=== PATIENT | male | born 1965 | race Caucasian/White ===

== ENCOUNTER 2019-11-06 01:34 | Emergency (ER) | payer BC ==
[2019-11-06 03:01] LABS: ABSOLUTE BASOPHILS # (AUTO) 0.1 10^3/uL (0.0-0.2); ABSOLUTE EOSINOPHILS # (AUTO) 0.1 10^3/uL (0.0-0.6); ABSOLUTE LYMPHOCYTES (AUTO) 1.3 10^3/uL (0.5-4.7); ABSOLUTE MONOCYTES (AUTO) 0.6 10^3/uL (0.1-1.4); ABSOLUTE NEUT (AUTO) 5.7 10^3/uL (1.7-8.2); BASOPHILS % (AUTO) 0.7 % (0-2); HEMOGLOBIN 14.8 g/dL (13.5-17.0); LYMPHOCYTES % (AUTO) 16.8 % (13-45); MEAN CORPUSCULAR HEMOGLOBIN 34.1 pg (27.0-33.4); MEAN CORPUSCULAR HGB CONC 34.4 g/dL (32.0-36.0); MEAN CORPUSCULAR VOLUME 99 fl (80-97); MONOCYTES % (AUTO) 7.2 % (3-13); PLATELET COUNT 171 10^3/uL (150-450); RED BLOOD COUNT 4.33 10^6/uL (4.35-5.55); RED CELL DISTRIBUTION WIDTH 13.2 % (11.5-14.0); SEGMENTED NEUTROPHILS % (AUTO) 74.3 % (42-78); TOTAL CELLS COUNTED % (AUTO) 100 %; WHITE BLOOD COUNT 7.7 10^3/uL (4.0-10.5)
[2019-11-06 03:02] LABS: APPEARANCE,URINE CLEAR; BILIRUBIN,URINE NEGATIVE (NEGATIVE); COLOR,URINE YELLOW; GLUCOSE, URINE NEGATIVE (NEGATIVE); KETONES,URINE NEGATIVE (NEGATIVE); LEUKOCYTE ESTERASE,URINE NEGATIVE (NEGATIVE); NITRITE,URINE NEGATIVE (NEGATIVE); PROTEIN,URINE NEGATIVE (NEGATIVE); URINE SPECIFIC GRAVITY 1.014; UROBILINOGEN,URINE NEGATIVE mg/dL (<2.0)
--- NOTE | 2019-11-06 03:24 | ER Document Report ---
ED Dizziness/Weakness - General Chief Complaint: Dizziness Stated Complaint: LIGHTHEADED Time Seen by Provider: 11/06/19 02:59 Notes: 54-year-old male with medical history of tendinitis presenting with an episode of chest tightness that woke him out of sleep. States that the symptoms resolved after he got up but shortly after he felt sweaty, dizzy and developed chills and an increase in his chest pressure. He denies any chest pain or shor tness of breath. He has no pain radiating down his left arm or up his neck. States that he felt very dizzy on the second episode which prompted him to call EMS. He denies any symptoms currently. States his blood pressure is typically 130/80- 140/90. No past medical history of cardiac events or strokes. He has been exposed to someone who tested positive for COVID. - Related Data Allergies/Adverse Reactions: No Known Allergies Allergy (Unverified 11/06/19 02:11) Past Medical History - Social History Smoking Status: Never Smoker Chew tobacco use (# tins/day): No Frequency of alcohol use: None Drug Abuse: None Family History: Reviewed & Not Pertinent Patient has homicidal ideation: No Review of Systems - Review of Systems Constitutional: See HPI EENT: No symptoms reported Cardiovascular: See HPI Respiratory: No symptoms reported Gastrointestinal: No symptoms reported Genitourinary: No symptoms reported Male Genitourinary: No symptoms reported Musculoskeletal: No symptoms reported Skin: No symptoms reported Hematologic/Lymphatic: No symptoms reported Neurological/Psychological: No symptoms reported Physical Exam - Vital signs Vitals: Resp Pulse Ox 15 97 11/06/19 01:35 11/06/19 01:35 Interpretation: Hypertensive - Notes Notes: Adult General: GENERAL: Alert, interacts well. No acute distress HEAD: Normocephalic, atraumatic EYES: Pupils equal, round and reactive to light. Extraocular movements intact. ENT: Oral mucosa moist, tongue midline. Oropharynx unremarkable. Airway patent. Nares patent. NECK: Full range of motion. Supple. Trachea midline. LUNGS: Clear to auscultation bilaterally, no wheezes, rales, or rhonchi. No respiratory distress. Nontender chest wall. HEART: Regular rate and rhythm. No murmurs, rubs or gallops. ABDOMEN: Soft, nontender. Nondistended. (-) Bentley sign. Bowel sounds present in all 4 quadrants. No rebound, guarding or masses. GENITOURINARY: Deferred EXTREMITIES: Moves all 4 extremities spontaneously. No edema, normal radial and dorsal pedis pulses bilaterally. No cyanosis. BACK: Moves all extremities with full range of motion. NEUROLOGICAL: Alert and oriented x3. Normal speech. Strength 5/ 5 in all extremities. PSYCH: Normal affect, normal mood. SKIN: Warm, dry, normal turgor. No rashes or lesions noted. Course - Re-evaluation Re-evalutation: 11/06/19 08:15 Patient was reevaluated. He states that he feels much better at this time. Patient's labs and imaging are unremarkable. He has had 2 negative troponins, a chest x-ray with no concerning findings and an EKG with no ST segment elevations or depressions. I discussed this with the patient. His blood pressure does remain slightly elevated. I recommend he has follow-up with his primary care for that. Patient notifies provider that he recently traveled from [place] and he normally eats very healthy but during this trip he drank a lot of caffeine to stay awake. He believes that this could have contributed to his symptoms. As patient lab work and imaging are unremarkable and patient feels exponentially better I am comfortable discharging the patient. Patient may follow-up with his primary care provider. Also recommend patient follow the guidance as a person under investigation for COVID. This information will be provided in the discharge summary also he may return to the emergency department for worsening symptoms or the development of new symptoms. Patient acknowledges and verbalizes understanding of instructions and plan. All questions answered. - Vital Signs Vital signs: Temp Pulse Resp BP Pulse Ox 98.2 F 55 L 16 163/78 H 100 11/06/19 01:55 11/06/19 07:00 11/06/19 07:00 11/06/19 07:00 11/06/19 07:00 - Laboratory Result Diagrams: 11/06/19 02:40 11/06/19 02:40 Laboratory results interpreted by me: 11/06/19 11/06/19 02:40 02:40 RBC 4.33 L MCV 99 H MCH 34.1 H Glucose 118 H Creatine Kinase 843 H - EKG Interpretation by Me Additional EKG results interpreted by me: 11/06/19 08:17 EKG shows a rate of 52, sinus rhythm, FL interval of 136, QTC of 406, no ST segment elevations or depressions. Discharge - Discharge Clinical Impression: Person under investigation for COVID-19, Chest tightness, Elevated blood pressure reading without diagnosis of hypertension Condition: Stable Disposition: HOME, SELF-CARE Instructions: COVID-19 Guidance for Persons Under Investigation Additional Instructions: Your labs and imaging have been unremarkable. I recommend you follow-up with your primary care provider as soon as possible. If you have worsening symptoms or development of new symptoms please return to the emergency department.
[2019-11-06 03:25] LABS: ALBUMIN 4.2 g/dL (3.5-5.0); ALKALINE PHOSPHATASE 80 U/L (38-126); ANION GAP 6 (5-19); ASPARTATE AMINO TRANSFERASE 35 U/L (17-59); BILIRUBIN,TOTAL 0.5 mg/dL (0.2-1.3); BLOOD UREA NITROGEN 15 mg/dL (7-20); CALCIUM 9.2 mg/dL (8.4-10.2); CARBON DIOXIDE 28 mmol/L (22-30); CHLORIDE 106 mmol/L (98-107); CREATINE KINASE 843 U/L (55-170); GLUCOSE 118 mg/dL (75-110); POTASSIUM 4.4 mmol/L (3.6-5.0); TOTAL PROTEIN 7.2 g/dL (6.3-8.2)
[2019-11-06 03:36] LABS: CREATINE KINASE MB 1.21 ng/mL (<4.55)
[2019-11-06 03:40] LABS: TROPONIN I < 0.012 ng/mL
--- NOTE | 2019-11-06 03:56 | RADIOLOGY REPORT (SQ) ---
CHEST 1 VIEW on 11/06/2019 at 3:31 AM CLINICAL INDICATION: Dizziness COMPARISON: None FINDINGS: The lungs are clear. Cardiac, hilar and mediastinal contours are within normal limits. Pulmonary vascularity is within normal limits. No bony abnormality is noted. IMPRESSION: No active disease.
[2019-11-06 05:52] VITALS: BP 163/78
--- NOTE | 2019-11-06 11:53 | EKG REPORT ---
SEVERITY:- OTHERWISE NORMAL ECG - SINUS BRADYCARDIA LEFT AXIS DEVIATION : Confirmed by: Jacob Kimble MD 06-Nov-2019 11:52:31
== END 2019-11-06 08:30 | disposition home or self-care (01) ==
LOC: ER 01:34
DX: R07.89 Other chest pain (principal); R42 Dizziness and giddiness; R61 Generalized hyperhidrosis; R68.83 Chills (without fever); R03.0 Elevated blood-pressure reading, without diagnosis of hypertension; Z20.828 Contact with and (suspected) exposure to other viral communicable diseases
CPT/HCPCS: 93005; 99284; 36415; 82553; 82550; 83735; 84443; 85025; 87635; 80053; 81001; 84484; 71045; 93010; C9803